=== PATIENT | male | born 1945 | race African-American/Black ===

== ENCOUNTER 2021-09-21 13:40 | Emergency (ER) | payer MEDICARE, OTHER ==
[~2021-09-21 13:40] MED LIST: HYDR-4723 PO; LISI1TAB13 PO; METH10SO PO; SIMV-260 PO; WARF5TAB40 PO
== END 2021-09-21 16:36 ==
LOC: EMS 13:40
DX: I46.9 Cardiac arrest, cause unspecified (principal); F17.210 Nicotine dependence, cigarettes, uncomplicated
CPT/HCPCS: 92950; 99291; Z7502